=== PATIENT | female | born 1995 | race Caucasian/White ===

== ENCOUNTER → 2017-08-27 | Outpatient (CLI) | payer OTHER | LOC: COL.VAS 12:35 | DX: R06.00 Dyspnea, unspecified (principal) ==

== ENCOUNTER 2017-09-17 18:31 | Emergency (ER) | payer OTHER ==
[~2017-09-17] VITALS: Ht 160 cm; Wt 50.0 kg
[2017-09-17 18:36] VITALS: BP 112/74; TEMP 98.4
[2017-09-17] MEDS ORDERED: RT ADVAIR HFA 1112 G IH (19:12)
[2017-09-17 19:18] VITALS: PULSE 104
== END 2017-09-17 19:18 | disposition home or self-care (01) ==
LOC: COL.ER 18:31
DX: O26.92 Pregnancy related conditions, unspecified, second trimester (principal); R10.30 Lower abdominal pain, unspecified; Z3A.15 15 weeks gestation of pregnancy; Z79.51 Long term (current) use of inhaled steroids

== ENCOUNTER 2017-12-02 17:33 | Emergency (ER) | payer OTHER ==
[~2017-12-02] VITALS: Ht 160 cm; Wt 57.7 kg
[~2017-12-02 17:33] MED LIST: RT ADVAIR HFA 1112 G IH
[2017-12-02 17:42] VITALS: BP 122/82; PULSE 102; TEMP 97.9
[2017-12-02] MEDS ORDERED: PRENATAL (17:52)
== END 2017-12-02 18:00 | disposition home or self-care (01) ==
LOC: COL.ER 17:33
DX: O26.899 Other specified pregnancy related conditions, unspecified trimester (principal); R10.9 Unspecified abdominal pain

== ENCOUNTER 2017-12-02 18:16 | Outpatient (CLI) | payer OTHER ==
[~2017-12-02] VITALS: Ht 160 cm; Wt 57.7 kg
[2017-12-02 18:15] VITALS: BP 114/69; PULSE 97; TEMP 98.6
[~2017-12-02 18:16] MED LIST changes: +PRENATAL
== END 2017-12-02 19:05 | disposition home or self-care (01) ==
LOC: LDRO 18:16 → LDR 18:31 → LDRO 19:05
DX: O36.8120 Decreased fetal movements, second trimester, not applicable or unspecified (principal); Z3A.26 26 weeks gestation of pregnancy
CPT/HCPCS: OP

== ENCOUNTER 2018-01-12 09:32 | Outpatient (CLI) | payer OTHER ==
[~2018-01-12] VITALS: Ht 160 cm; Wt 61.4 kg
[2018-01-12] MEDS ORDERED: FLAGYL500 MG PO (09:55)
[2018-01-12] MEDS ORDERED: FLEXERIL5 MG PO (09:56)
[2018-01-12 10:00] VITALS: BP 118/76; PULSE 116; TEMP 97.5
[2018-01-12 10:45] VITALS: BP 111/68; PULSE 116
[2018-01-12 11:35] VITALS: BP 109/61; PULSE 106
== END 2018-01-12 11:40 | disposition home or self-care (01) ==
LOC: LDRO 09:32 → LDR 09:34 → LDRO 11:40
DX: O62.9 Abnormality of forces of labor, unspecified (principal); O26.899 Other specified pregnancy related conditions, unspecified trimester; R10.9 Unspecified abdominal pain; Z3A.00 Weeks of gestation of pregnancy not specified
CPT/HCPCS: OP; J7120

== ENCOUNTER 2018-02-08 07:20 | Inpatient (IN) | payer OTHER ==
[~2018-02-08] VITALS: Ht 160 cm; Wt 63.2 kg
[2018-02-08] VITALS (34 sets, daily range): BP systolic 105–143; BP diastolic 61–84; PULSE 83–179; TEMP 97.6–99
[~2018-02-08 07:20] MED LIST changes: +FLAGYL500 MG PO; +FLEXERIL5 MG PO
[2018-02-08] MEDS ORDERED: TYLENOL 500MG500 MG PO (07:44)
[2018-02-08 08:39] LABS: BASO # 0.1 (0.0-0.2); BASO % 0.5 % (0.0-2.0); EOS # 0.2 (0.0-0.7); EOS % 1.9 % (0-4.0); GRAN % 75.2 % (42.2-75.2); HEMATOCRIT 38.7 % (37.0-47.0); HEMOGLOBIN 12.4 g/dl (12.5-16.0); LYMPH # 1.4 (1.2-3.4); LYMPH % 14.5 % (20.0-51.0); MEAN CELL VOLUME 85 fl (80.0-100.0); MEAN CORPUSCULAR HEMOGLOBIN 27 pg (27.0-31.0); MEAN CORPUSCULAR HGB CONC 32 g/dl (33.0-37.0); MEAN PLATELET VOLUME 10.4 fl (7.4-10.4); MONO # 0.7 (0.1-0.6); MONO % 7.5 % (1.7-9.3); PLATELET COUNT 274 K/mm3 (130-400); RED BLOOD COUNT 4.55 M/mm3 (4.10-5.30); REDCELL DISTRIBUTION WIDTH-CV 12.3 % (11.5-14.5)
[2018-02-09 08:45] VITALS: BP 112/71; PULSE 87; TEMP 97.7
[2018-02-09 17:30] VITALS: BP 116/69; PULSE 86; TEMP 97.8
[2018-02-09 23:45] VITALS: BP 110/68; PULSE 89; TEMP 98.3
[2018-02-10 07:45] VITALS: BP 111/76; PULSE 92; TEMP 97.8
[2018-02-10] MEDS ORDERED: PERCOCET 325 MG1 TA2 PO (07:45)
[2018-02-10] MEDS ORDERED: MOTRIN 800800 MG/TAB PO (07:45)
[2018-02-10] MEDS ORDERED: BREASTPUMP MC (09:35)
== END 2018-02-10 16:25 | disposition home or self-care (01) | DRG 807 ==
LOC: LDRO 07:20 → LDR 07:25 → LDRO 08:26 → LDR 08:27 → OB 17:00
PROVIDERS: Obstetrics & Gynecology
PROC: 10E0XZZ Delivery of Products of Conception, External Approach (ICD-10-PCS; principal; 2018-02-08)
PROC: 0KQM0ZZ Repair Perineum Muscle, Open Approach (ICD-10-PCS; 2018-02-08)
DX: O42.013 Preterm premature rupture of membranes, onset of labor within 24 hours of rupture, third trimester (principal); Z37.0 Single live birth; Z3A.35 35 weeks gestation of pregnancy; O77.0 Labor and delivery complicated by meconium in amniotic fluid; O34.211 Maternal care for low transverse scar from previous cesarean delivery
CPT/HCPCS: J2540; J2590; J7120